=== PATIENT | female | born 1985 | race Caucasian/White ===

== ENCOUNTER 2020-10-14 01:57 | Emergency (ER) | payer OTHER, SELFPAY ==
[2020-10-14 02:01] VITALS: BP 126/69; PULSE 79; RESP 18; TEMP 36; O2SAT 98; BMI 32.3
--- NOTE | 2020-10-14 02:11 | ED.EXTPRO ---
HPI - Extremity Problem General Chief complaint: Extremity Injury, Upper Stated complaint: Shoulder pain Time Seen by Provider: 10/14/20 02:11 Source: patient Mode of arrival: ambulatory Limitations: no limitations History of Present Illness HPI Narrative: treated for biceps tendonitis with steroids from - did not injure arm but now notes that her L trapezius area is tight and spasmed Complaint: extremity pain Onset (ago): day(s) (5) Pain Consistency: constant Location: left and upper extremity Quality: aching Radiation: none Relieving factors: nothing Exacerbating factors: range of motion Associated symptoms: denies other symptoms Context: recent travel Related Data Previous Rx's Medication Instructions Recorded diazepam [Valium] 5 mg PO TID PRN #10 tab 10/14/20 ibuprofen 600 mg PO Q6H PRN #30 tab 10/14/20 lidocaine 1 patch TOPICAL DAILY PRN #10 ea 10/14/20 Allergies Allergy/AdvReac Type Severity Reaction Status Date / Time Penicillins [PCN] Allergy Unknown RASH Verified 10/14/20 01:58 sulfamethoxazole Allergy Unknown RASH Verified 10/14/20 01:58 [From BACTRIM] trimethoprim [From BACTRIM] Allergy Unknown RASH Verified 10/14/20 01:58 Review of Systems Review of Systems: Constitutional : No Fever, No Chills ENT/Mouth : No Ear Pain, No Hoarseness, No sore throat Cardiovascular : No Chest Pain, No SOB Respiratory : No Cough, No Dyspnea Gastrointestinal : No Nausea, No Vomiting, No Diarrhea, No abdominal Pain Genitourinary : No Dysuria, No Hematuria Musculoskeletal : positive joint pain, pos Myalgias, No Joint Swelling Skin : No Skin lacerations, No rash Neuro : No Weakness, No Numbness, No Loss of Consciousness, No PMFSH Past Medical History Attestation statement: The following information was validated with the patient. Medical History Asthma Biceps tendonitis Surgical History History of section Social History Social History (Updated 10/14/20 @ 02:14 by Phyllis Sr DO) Smoking Status: Current every day smoker Advance Directives: No Advance Directives Information Provided: No Physical Exam Vital Signs: Vital Signs: Last Vital Signs Temp 96.8 F 10/14/20 02:01 Pulse 79 10/14/20 02:01 Resp 18 10/14/20 02:01 BP 126/69 10/14/20 02:01 Pulse Ox 98 10/14/20 02:01 Body Mass Index 32.3 Appearance: Alert. Oriented X3. No acute distress. Eyes: Pupils equal, round and reactive to light. ENT: Pharynx normal. Neck: Normal inspection. Neck supple. CVS: Normal heart rate and rhythm. Pulses normal. Respiratory: No respiratory distress. Breath sounds normal. Abdomen: Soft and nontender. Skin: Skin warm and dry. Normal skin color. Normal skin turgor. Extremities: No lower extremity edema. No calf ttp pain with ROM of L shoulder but intact, distal NV intact, 2+ radial pulse, BCR in all digits, SILT intact, ttp along L trapezius with spasm Neuro: Oriented X 3. No motor deficit. No sensory deficit. MDM - Extremity (Nontraumatic) MDM Narrative Medical decision making narrative: 32 yo female with recent biceps tendonitis here with L trapezius spasm likely related to compensation, no trauma, no crepitus can range shoulder will give NSAIDs, lidocaine patch, MRs - anticipate DC with supportive care Discharge Plan Discharge Clinical Impression: Trapezius muscle spasm Patient Disposition: Home, Self-Care Instructions: Muscle Spasm (ED) Additional Instructions: return to ED for any worsening symptoms or concerns Prescriptions: New lidocaine 4 % adhesive patch,medicated 1 patch topical DAILY PRN (Reason: pain) Qty: 10 RF: 0 ibuprofen 600 mg tablet 600 mg PO Q6H PRN (Reason: pain) Qty: 30 RF: 0 diazepam [Valium] 5 mg tablet 5 mg PO TID PRN (Reason: muscle spasm) Qty: 10 RF: 0 Referrals: Physician,Unknown [Primary Care Provider] - 2 days (if not better)
[2020-10-14] MEDS: Ketorolac Tromethamine 60 MG/2 ML VIAL IM (02:22)
[2020-10-14] MEDS: Lidocaine 4 % Patch ADH..PATCH 1 PATCH TRANSDERMA (02:23)
== END 2020-10-14 02:25 | disposition home or self-care (01) ==
PROVIDERS: Emergency Provider Emergency Medicine
DX: M25.512 Pain in left shoulder (principal); M62.838 Other muscle spasm; F17.200 Nicotine dependence, unspecified, uncomplicated; Z71.6 Tobacco abuse counseling; Z79.899 Other long term (current) drug therapy
CPT/HCPCS: 96372; 99283; J1885

== ENCOUNTER 2021-04-01 14:18 | Emergency (ER) | payer OTHER, SELFPAY ==
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
[2021-04-01 14:31] VITALS: BP 173/91; PULSE 98; RESP 18; TEMP 36.8; O2SAT 98; BMI 33.7
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
[2021-04-01] MEDS: diazePAM 5 MG TABLET PO (14:53)
== END 2021-04-01 15:25 | disposition home or self-care (01) ==
PROVIDERS: Emergency Provider Emergency Medicine
DX: S00.81XA Abrasion of other part of head, initial encounter (principal); S60.222A Contusion of left hand, initial encounter; V43.52XA Car driver injured in collision with other type car in traffic accident, initial encounter; W22.11XA Striking against or struck by driver side automobile airbag, initial encounter; Y93.89 Activity, other specified; Y92.414 Local residential or business street as the place of occurrence of the external cause; Y99.9 Unspecified external cause status
CPT/HCPCS: 73130; 99283; 99284

== ENCOUNTER 2021-05-25 05:16 | Emergency (ER) | payer OTHER, SELFPAY ==
[2021-05-25 06:28] VITALS: BP 107/71; PULSE 86; RESP 16; TEMP 36.4; O2SAT 99; BMI 35.6
[2021-05-25 07:05] VITALS: BP 114/77; PULSE 72; RESP 16; TEMP 36.7; O2SAT 100
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
--- NOTE | 2021-05-25 07:38 | ED_ITS ---
HPI - URI/Sore Throat General Chief Complaint: Upper Respiratory Symptoms Stated Complaint: cough/asthma Time Seen by Provider: 05/25/21 07:23 Source: patient Mode of arrival: ambulatory Limitations: no limitations History of Present Illness HPI Narrative: 35-year-old female who presents emergency department for evaluation of cough, chest pain and shortness of breath. The patient has a history of asthma. She states that she has been sick for approximately 1 week. Patient has a cough which is productive of thick, yellow to brown sputum with no blood in the sputum. She has been short of breath and having dyspnea on exertion. She has had to use her albuterol inhaler 10 times a day. She states that she has a burning sensation in her chest, she points to her sternum. The pain is constant but worse with breathing. The pain is moderate to severe in intensity. The patient was seen 3 days prior at [facility] Emergency Department and started on a tapering course of steroids. She states that she has not improved despite being on the steroids. She states that she has had bronchitis in the past and she is concerned that her symptoms are not improving secondary to bronchitis. Related Data Previous Rx's Medication Instructions Recorded diazepam [Valium] 5 mg PO TID PRN #10 tab 10/14/20 ibuprofen 600 mg PO Q6H PRN #30 tab 10/14/20 lidocaine 1 patch TOPICAL DAILY PRN #10 ea 10/14/20 cyclobenzaprine 10 mg PO TID PRN #14 tab 04/01/21 ibuprofen 600 mg PO Q6H PRN #30 tab 04/01/21 lidocaine 1 patch TOPICAL DAILY PRN #10 ea 04/01/21 azithromycin [Zithromax Z-Duane] See Rx Instructions .ROUTE 05/25/21 .COMPLEX #6 tab prednisone 60 mg PO DAILY 5 Days #15 tab 05/25/21 Allergies Allergy/AdvReac Type Severity Reaction Status Date / Time Penicillins [PCN] Allergy Unknown RASH Verified 10/14/20 01:58 sulfamethoxazole Allergy Unknown RASH Verified 10/14/20 01:58 [From BACTRIM] trimethoprim [From BACTRIM] Allergy Unknown RASH Verified 10/14/20 01:58 Review of Systems Review of Systems: Yes all other systems are reviewed and are negative Constitutional: Constitutional: Reports as per HPI Eyes: Eyes: Reports as per HPI ENT: Reports as per HPI Cardiovascular: Cardiovascular: Reports as per HPI Respiratory: Respiratory: Reports as per HPI Gastrointestinal: Gastrointestinal: Reports as per HPI Genitourinary: Genitourinary: Reports as per HPI Musculoskeletal: Musculoskeletal: Reports as per HPI Integumentary/Breasts: Skin/Breast: Reports as per HPI Neurologic: Reports as per HPI Psychiatric: Psychiatric: Reports as per HPI Allergic/Immunologic: Allergic/Immunologic: Reports as per HPI [facility] Past Medical History Attestation statement: The following information was validated with the patient. [facility] Narrative: past medical history: Asthma, depression. Past surgical history: 10 years prior, bilateral tubal ligation, IUD. Social history the patient smokes 3 cigarettes per day times 15 years, she occasionally drinks alcohol, she denies drug use. Medical History Asthma Biceps tendonitis Surgical History History of section Social History Social History Alcohol intake: never Patient Tobacco Use Status: Current everyday Tobacco user Smoked in Last 30 Days: Yes Use of substances other than those prescribed or required for medical reasons: No Advance Directives: No Advance Directives Information Provided: No Patient : No Physical Exam Vital Signs: Vital Signs: Last Vital Signs Temp 98.1 F 05/25/21 07:05 Pulse 72 05/25/21 07:05 Resp 16 05/25/21 07:05 BP 114/77 05/25/21 07:05 Pulse Ox 100 05/25/21 07:05 Body Mass Index 35.6 Const: General: cooperative and healthy appearing Orientation/consciousness: oriented to person and oriented to place Limitations: no limitations HENMT: Head: Yes normal to inspection, Yes normocephalic and Yes atraumatic Ears: external ears normal General nose exam: Normal external nose present Face and sinus: Yes normal facial exam Mouth: Normal oral and palatal mucosa present Throat: Yes posterior oropharynx normal Eyes: General: appearance normal, both eyes and all related structures Alignment and Position: alignment normal Periorbital: periorbital findings normal Eyelids: Yes eyelids normal Conjunctivae: conjunctivae normal Sclerae: sclerae normal Pupils: Equal, round and reactive pupils present Direct Ophthalmoscopy: normal light reflex Neck: Neck: Yes normal visual inspection and Yes supple Thyroid: Thyroid normal Chest: Chest palpation & inspection: normal inspection of the chest and normal palpation of entire chest wall Resp: Effort & Inspection: normal respiratory effort and able to speak in complete sentences Auscultation: clear to auscultation bilaterally, no crackles, no rales, no rhonchi and wheezes expiratory wheezes and throughout Cardio: Rate: regular rate Rhythm: regular rhythm Heart sounds: S1 normal heart sound present, S2 normal heart sound present and no murmurs GI: Inspection: Yes normal to inspection Palpation (GI): Soft to palpation, nontender and no guarding Auscultation: normal bowel sounds : General: Yes no CVA tenderness Back/Spine/Pelvis: Back: no CVA tenderness Cervical Spine: normal cervical lordosis Thoracic/Lumbar Spine: thoracic and lumbar spine normal to inspection Skin: General skin exam: no rashes or lesions noted Lesions: no lesions Rashes: no rashes Trauma: no lacerations or abrasions Neuro: General: oriented to person and oriented to place Cranial nerves: Yes CN's II-XII intact bilaterally and Yes Equal, round and reactive pupils present Cognition (Neuro): normal cognition Motor exam (neuro): 5/5 motor strength present throughout Extrem: Right upper extremity: normal to inspection and full ROM Psych: Appearance: grossly normal and well kempt Mental Status: mental status grossly normal Speech and movement: Normal speech and movement present Affect: normal affect Attitude: cooperative Thought process: Normal thought process present Thought content: Normal thought content present Insight: Good insight present (Psych) Judgement: Good judgement present (Psych) Course Course Course Narrative: 35-year-old female with history of asthma who presents emergency department for 1 week of chest pain, shortness of breath and productive cough. The patient was seen 3 days prior at [facility] Emergency Department started on tapered course of steroids, despite this she is not improved. Patient's physical examination revealed normal vital signs. The patient did have diffuse expiratory wheezing on her lung exam. Patient's presentation is consistent with an asthma exacerbation possibly also with bacterial bronchitis. I prescribed a pulse dose of steroids 60 mg once a day for 5 days I told her to take this instead of her tapering course of steroids. She was also started on Zithromax Z-Duane. The patient was given verbal and printed instructions prior to discharge. The patient was advised to follow-up with their PCP in 2 days and to return to the emergency department if their symptoms get worse or if they develop any new symptoms that are concerning to them Discharge Plan Discharge Clinical Impression: Asthma exacerbation Qualifiers: Asthma severity: moderate Asthma persistence: unspecified Qualified Code(s): J45.901 - Unspecified asthma with (acute) exacerbation Acute bronchitis Qualifiers: Bronchitis organism: unspecified organism Qualified Code(s): J20.9 - Acute bronchitis, unspecified Patient Disposition: Home, Self-Care Instructions: Acute Bronchitis (ED) Additional Instructions: Stop your tapering course of prednisone. Take prednisone 20 mg pills, 3 pills once a day for 5 days. Take Zithromax Z-Duane as prescribed. Continue to use your albuterol inhaler, 2 puffs every 4-6 hours as needed for shortness of breath. Follow-up with your doctor in 2 days. Please return to the emergency department if your symptoms get worse or if you develop any symptoms that are concerning to you. Prescriptions: New azithromycin [Zithromax Z-Duane] 250 mg tablet See Rx Instructions .ROUTE .COMPLEX Qty: 6 RF: 0 prednisone 20 mg tablet 60 mg PO DAILY 5 Days Qty: 15 RF: 0 No Action cyclobenzaprine 10 mg tablet 10 mg PO TID PRN (Reason: muscle spasm) Qty: 14 RF: 0 lidocaine 4 % adhesive patch,medicated 1 patch topical DAILY PRN (Reason: pain) Qty: 10 RF: 0 ibuprofen 600 mg tablet 600 mg PO Q6H PRN (Reason: pain) Qty: 30 RF: 0 lidocaine 4 % adhesive patch,medicated 1 patch topical DAILY PRN (Reason: pain) Qty: 10 RF: 0 ibuprofen 600 mg tablet 600 mg PO Q6H PRN (Reason: pain) Qty: 30 RF: 0 diazepam [Valium] 5 mg tablet 5 mg PO TID PRN (Reason: muscle spasm) Qty: 10 RF: 0
== END 2021-05-25 08:01 | disposition home or self-care (01) ==
PROVIDERS: Emergency Provider Emergency Medicine Emergency Medical Services
DX: J45.901 Unspecified asthma with (acute) exacerbation (principal); J20.9 Acute bronchitis, unspecified
CPT/HCPCS: 99283; 99284